=== PATIENT | male | born 1965 | race Caucasian/White ===

== ENCOUNTER 2017-01-29 17:12 | Emergency (ER) | payer OTHER ==
[~2017-01-29] VITALS: Ht 157.5 cm; Wt 94.0 kg
[~2017-01-29 17:12] MED LIST: OXYC-57 PO
[2017-01-29 17:13] VITALS: TEMP 36.9; Ht 157.5 cm; Wt 94.0 kg
[2017-01-29] MEDS ORDERED: XYLOCAINE 1%/SOD BICARB 20 ML VIAL INFIL ONE (17:52)
--- NOTE | 2017-01-29 17:53 | EMERGENCY ROOM VISIT NOTE ---
ED Visit Note First contact with patient: 17:40 CHIEF COMPLAINT: Left thumb laceration HISTORY OF PRESENT ILLNESS: This 51-year-old male patient presents to the emergency department ambulatory after cutting the left thumb on a saw just prior to arrival. The bleeding has none stopped. Denies weakness or numbness of the finger. The patient denies any pain. The patient denies any other injuries. The patient's Tetanus shot is not up to date. REVIEW OF SYSTEMS: A 6 system review of systems was completed with positives and pertinent negatives listed in the HPI. ALLERGIES: None MEDICATIONS: None PMH: None SOCIAL HISTORY: The patient is employed. He lives locally PHYSICAL EXAM: Vital Signs: Reviewed Nurse's notes, vital signs stable. GENERAL : this is a 51-year-old male, in no acute distress, well-developed, well- nourished. SKIN: There is a 3 cm long laceration on the dorsal aspect of the left thumb at the mid proximal phalanx. The edges gape apart with traction. There is no foreign material in the wound and it looks clean. There is moderate bleeding. No deep structures such as tendons, bones, or nerves are seen in the base of the wound. Normal strength and movement of the thumb. Capillary refill less than 2 seconds. Normal sensation to light and sharp touch. EMERGENCY DEPARTMENT COURSE: I examined the patient. Using sterile technique the wound was cleaned with Betadine. The area was sterilely draped. 3 ml of 1% buffered lidocaine was used to anesthetize the laceration on the thumb. Once the patient was numb, the wound was copiously irrigated under pressure with sterile saline. The wound was explored in a bloodless field after tourniquet was applied and the extensor tendon appears to be lacerated. The laceration was repaired using 5 simple interrupted 5-0 nylon sutures with the wound edges being well approximated. The patient tolerated the procedure well. The bleeding stopped. The area was cleaned with sterile saline and dressed with bacitracin ointment and bandage. The patient was given Td immunization. The patient was discharged home in good condition. The patient was placed in a metal splint. The patient refused an x-ray I discussed the case with Dr. Quarles who agreed with the above management and states the patient should follow-up in the office this week DIAGNOSIS: Left thumb laceration with tendon involvement DISCHARGE INSTRUCTIONS & TREATMENT: Keep wound clean and dry. Do not allow any crusting or dried blood to accumulate on sutures. If this occurs, use a 1:1 solution of hydrogen peroxide/water on a Q-tip to clean the wound. Use an antibiotic ointment for 3-4 days, then let wound dry. Suture removal in 10-12 days. Return sooner for any signs of infection (increasing redness, swelling, drainage). Ice and elevate for swelling and pain. Ibuprofen 600 mg every 6 hrs for pain. Keep covered when in sun until sutures removed then SPF 50 or higher for one year. Vitamin E oil if desired two weeks after suture removal for reduction of scar. Wear the splint until seen by orthopedics Contact orthopedics first thing in the morning to schedule a follow-up appointment further evaluation and management. The tendon will not heal on its own and you must follow-up with orthopedics to ensure that you continue to have use of the finger. Keflex every 6 hours for 7 days to help prevent infection Return with worsening symptoms Problem List Medical Problems: (1) Microscopic Hematuria Status: Resolved Current/Historical Medications Scheduled Cephalexin Monohydrate (Keflex), 500 MG PO QID Allergies Coded Allergies: No Known Allergies (Unverified , 01/29/17) Vital Signs Date Time Temp Pulse Resp B/P Pulse Ox O2 Delivery O2 Flow Rate FiO2 01/29/17 18:40 65 18 124/84 98 Room Air 01/29/17 17:13 36.9 67 20 133/81 97 Medications Administered Medications (Trade) Dose Ordered Sig/Kalli Route Start Time Stop Time Status Last Admin Dose Admin Diphtheria/ Pertussis/Tetanus Vacc (Adacel Inj) 0.5 ml ONCE ONCE IM. 01/29/17 18:00 01/29/17 18:01 DC 01/29/17 18:01 0.5 ML Departure Information Impression Primary Impression: Finger laceration involving tendon Dispostion Home / Self-Care Condition GOOD Prescriptions Cephalexin Monohydrate (Keflex) 500 Mg Cap 500 MG PO QID for 7 Days, #28 CAP Prov: Jennifer Prado PA-C 01/29/17 Referrals No Doctor, Assigned (PCP) Anders Culp MD Patient Instructions ED Laceration Tendon, [facility] Additional Instructions Keep wound clean and dry. Do not allow any crusting or dried blood to accumulate on sutures. If this occurs, use a 1:1 solution of hydrogen peroxide/ water on a Q-tip to clean the wound. Use an antibiotic ointment for 3-4 days, then let wound dry. Suture removal in 10-12 days. Return sooner for any signs of infection (increasing redness, swelling, drainage). Ice and elevate for swelling and pain. Ibuprofen 600 mg every 6 hrs for pain. Keep covered when in sun until sutures removed then SPF 50 or higher for one year. Vitamin E oil if desired two weeks after suture removal for reduction of scar. Wear the splint until seen by orthopedics Contact orthopedics first thing in the morning to schedule a follow-up appointment further evaluation and management. The tendon will not heal on its own and you must follow-up with orthopedics to ensure that you continue to have use of the finger. Keflex every 6 hours for 7 days to help prevent infection Return with worsening symptoms Problem Qualifiers Primary Impression: Finger laceration involving tendon Encounter type: initial encounter Qualified Codes: S61.219A - Laceration without foreign body of unspecified finger without damage to nail, initial encounter; S61.209A - Unspecified open wound of unspecified finger without damage to nail, initial encounter
[2017-01-29] MEDS ORDERED: DIPHTHERIA/TETANUS/PERTUSSIS 0.5 ML SYR/VIAL IM. ONE (18:00)
[2017-01-29] MEDS ORDERED: CEPH500C PO (18:26)
[2017-01-29 18:40] VITALS: BP 124/84; PULSE 65; O2SAT 98
== END 2017-01-29 18:41 | disposition home or self-care (01) ==
LOC: C.EDB 17:12 → C.EDD 18:41
DX: S66.222A Laceration of extensor muscle, fascia and tendon of left thumb at wrist and hand level, initial encounter (principal); W27.0XXA Contact with workbench tool, initial encounter; Z23 Encounter for immunization

== ENCOUNTER → 2017-01-30 | Outpatient (CLI) | payer OTHER ==
[~2017-01-30] MED LIST changes: +CEPH500C PO
== END | disposition home or self-care (01) ==
LOC: C.CPL 15:31
DX: Z01.810 Encounter for preprocedural cardiovascular examination (principal)

== ENCOUNTER 2017-08-07 16:40 | Emergency (ER) | payer OTHER ==
[~2017-08-07] VITALS: Ht 162.6 cm; Wt 86.1 kg
[2017-08-07 16:47] VITALS: BP 119/66; PULSE 70; TEMP 36.6; O2SAT 97; Ht 162.6 cm; Wt 86.1 kg
--- NOTE | 2017-08-07 17:53 | EMERGENCY ROOM VISIT NOTE ---
History First contact with patient: 16:56 Chief Complaint: EYE ASSESSMENT Stated Complaint: LEFT EYE STY History of Present Illness The patient is a 51 year old male who presents to the Emergency Room with complaints of painful swelling of the left upper eyelid. The patient states that for the past 6 days, he has had worsening swelling and pain of the left upper eyelid. He rates his discomfort a 7/10. He states he has had styes in the past and this feels similar. He is using [id number] drops and warm compresses with no relief. He also reports that he has been squeezing the stye and attempting to "pop" it. He states he has had some drainage from the stye which makes his vision slightly blurry. He denies any injury to the eye. He denies any fevers/chills. Review of Systems A 6 point review of systems was reviewed with the patient with pertinent positives and negatives as per history of present illness. All else were negative. Past Medical/Surgical History Medical Problems: (1) Microscopic Hematuria Social History Smoking Status: Current Every Day Smoker Alcohol Use: occasionally Drug Use: none Marital Status: Housing Status: lives with family Occupation Status: employed Current/Historical Medications No Active Prescriptions or Reported Meds Physical Exam Vital Signs Date Time Temp Pulse Resp B/P (MAP) Pulse Ox O2 Delivery O2 Flow Rate FiO2 08/07/17 16:47 36.6 70 18 119/66 97 Room Air Right Eye Acuity: 20/70 Left Eye Acuity: 20/50 Physical Exam VITALS: Vitals are noted on the nurse's note and reviewed by myself. Vital signs stable. Visual acuity as documented above. GENERAL: This is a 51-year-old male, in no acute distress, nondiaphoretic, well- developed well-nourished. EYES: PERRLA. EOMs intact. There is edema and erythema of the left upper lateral eyelid which is tender to palpation. There is a small area of pointing on the underside of the eyelid with a small amount of purulent drainage. There is no conjunctival injection. No edema or erythema of the surrounding areas. NEURO: Patient was alert and oriented to person place and time. Medical Decision & Procedures Medical Decision Differential diagnosis includes acute hordeolum, chalazion, blepharitis, orbital cellulitis, among others. The patient was evaluated as above. He presents with history and physical consistent with an acute hordeolum of the left upper eyelid. I discussed treatment with the patient including warm compresses and antibiotic ointment to prevent superimposed infection. The patient was not happy with this treatment plan and requested incision and drainage of a stye. I explained to him that I did not feel this was necessary emergently and I could certainly give him a referral to an transport specialist for consideration of this. The patient was very adamant that I perform incision and drainage and I again told him I do not feel this is a necessary treatment at this time. The patient became very angry and left the emergency department, stating that he would not be paying for this visit, as "nothing was done for him." The patient left the emergency department without receiving discharge instructions. Medication Reconcilliation Current Medication List: was personally reviewed by me Blood Pressure Screening Patient's blood pressure: Normal blood pressure Impression Primary Impression: Hordeolum externum left upper eyelid Departure Information Prescriptions No Active Prescriptions or Reported Meds Referrals No Doctor, Assigned (PCP) Patient Instructions My [facility]
== END 2017-08-07 17:05 | disposition home or self-care (01) ==
LOC: C.EDB 16:41 → C.EDD 17:05
DX: H00.014 Hordeolum externum left upper eyelid (principal); F17.200 Nicotine dependence, unspecified, uncomplicated